=== PATIENT | male | born 1985 | race Hispanic/Latino ===

== ENCOUNTER 2022-06-14 13:31 | Inpatient (IN) | payer SELFPAY ==
[~2022-06-14] VITALS: Ht 172.7 cm; Wt 99.2 kg
[2022-06-14 14:47] LABS: HEMATOCRIT 39.8 % (42.0-52.0); HEMOGLOBIN 13.1 g/dl (13.5-17.5); MEAN CORPUSCULAR HGB CONC 32.9 g/dl (32.0-36.5); PLATELET COUNT, AUTOMATED 309 10^3/uL (150-450); RED BLOOD COUNT 4.68 10^6/uL (4.30-6.10); WHITE BLOOD COUNT 7.9 10^3/uL (4.0-10.0)
[2022-06-14 15:18] LABS: ETHYL ALCOHOL (ETHANOL) < 0.003 % (0.000-0.010)
[2022-06-14 15:19] LABS: ACETAMINOPHEN LEVEL < 2.0 UG/ML (10.0-20.0); SALICYLATE LEVEL < 3.0 MG/DL (<30)
[2022-06-14 15:29] LABS: AMPHETAMINES LEVEL URINE NEGATIVE (NEGATIVE); BARBITURATES URINE NEGATIVE (NEGATIVE); BENZODIAZEPINES URINE NEGATIVE (NEGATIVE); CANNABINOIDS URINE NEGATIVE (NEGATIVE); COCAINE METABOLITE URINE NEGATIVE (NEGATIVE); METHADONE URINE NEGATIVE (NEGATIVE); OPIATES URINE NEGATIVE (NEGATIVE); PHENCYCLIDINE URINE NEGATIVE (NEGATIVE)
[2022-06-14 16:30] LABS: ALBUMIN 3.8 G/DL (3.2-5.2); ALKALINE PHOSPHATASE 75 U/L (46-116); ALT/SGPT < 9 U/L (7.0-40); AST/SGOT 14 U/L (<34); BILIRUBIN,DIRECT 0.1 MG/DL (<0.4); BILIRUBIN,TOTAL 0.5 MG/DL (0.3-1.2); BLOOD UREA NITROGEN 13 MG/DL (9-23); CALCIUM LEVEL 9.4 MG/DL (8.5-10.1); CARBON DIOXIDE LEVEL 26 MMOL/L (20-31); CHLORIDE LEVEL 104 MMOL/L (98-107); CREATININE FOR GFR 0.84 MG/DL (0.70-1.30); GLOMERULAR FILTRATION RATE > 60.0 (>60); GLUCOSE, FASTING 100 MG/DL (60-100); POTASSIUM SERUM 3.9 MMOL/L (3.5-5.1); SODIUM LEVEL 139 MMOL/L (136-145); THYROID STIMULATING HORMONE 0.917 uIU/ML (0.55-4.78)
[2022-06-14] MEDS ORDERED: HOME MED LIST COMPLETE! XX SCH (23:30)
[2022-06-15] MEDS ORDERED: MAALOX 30 ML SUSP *UDC PO PRN (12:15)
[2022-06-15] MEDS ORDERED: traZODone 50 MG TAB PO PRN (12:15)
[2022-06-15] MEDS ORDERED: IBUPROFEN 400MG TAB PO PRN (12:15)
[2022-06-15] MEDS ORDERED: MOM 30ML SUSPENSION UDC PO PRN (12:15)
[2022-06-15] MEDS ORDERED: LORazepam 1 MG TAB PO PRN (12:15)
[2022-06-15 15:27] VITALS: BP 134/98
[2022-06-16 06:31] VITALS: BP 127/71
[2022-06-16] MEDS ORDERED: INFLUENZA QUADRIVALENT PF VACCINE 0.5ML SYRINGE IM.IMMUN ONE (09:00)
[2022-06-16] MEDS ORDERED: risperiDONE 0.5 MG TAB PO ONE (11:00)
[2022-06-16] MEDS: FLUoxetine 20MG CAP PO SCH (11:42)
[2022-06-16 16:40] VITALS: BP 110/64
[2022-06-16] MEDS: risperiDONE 0.5 MG TAB PO SCH (20:11)
[2022-06-17 06:09] VITALS: BP 114/58
[2022-06-17] MEDS: FLUoxetine 20MG CAP PO SCH (07:57)
[2022-06-17 08:12] LABS: HEMOGLOBIN A1c 5.4 % (4.0-6.0)
[2022-06-17 08:31] LABS: CHOLESTEROL RISK RATIO 3.41 (<5); HDL CHOLESTEROL 39.5 MG/DL (>40); LDL CHOLESTEROL 75.9 MG/DL (<100)
[2022-06-17 16:12] VITALS: BP 127/72
[2022-06-17] MEDS: risperiDONE 0.5 MG TAB PO SCH (20:07)
[2022-06-18 06:37] VITALS: BP 98/55
[2022-06-18] MEDS: FLUoxetine 20MG CAP PO SCH (09:58)
[2022-06-18 17:24] VITALS: BP 130/87
[2022-06-18] MEDS: risperiDONE 0.5 MG TAB PO SCH (20:04)
[2022-06-19 06:17] VITALS: BP 113/58
[2022-06-19] MEDS: FLUoxetine 20MG CAP PO SCH (08:34)
[2022-06-19] MEDS ORDERED: RISP-7 PO (11:10)
[2022-06-19] MEDS ORDERED: FLUO20CA22 PO (11:10)
== END 2022-06-19 14:05 | disposition home or self-care (01) | DRG 751 ==
LOC: M ED 13:31 → M ED INP 06-15 12:15 → EDBD 06-15 12:15 → M PSY 06-15 15:15
PROVIDERS: ADMIT Psychiatry & Neurology Psychiatry; ATTEND Student in an Organized Health Care Education/Training Program
DX: F33.3 Major depressive disorder, recurrent, severe with psychotic symptoms (principal); G47.00 Insomnia, unspecified

== ENCOUNTER 2022-06-24 10:31 | Inpatient (IN) | payer SELFPAY ==
[~2022-06-24] VITALS: Ht 172.7 cm; Wt 97.2 kg
[~2022-06-24 10:31] MED LIST: FLUO20CA22 PO; RISP-7 PO
[2022-06-24 11:44] LABS: HEMATOCRIT 39.5 % (42.0-52.0); HEMOGLOBIN 13.3 g/dl (13.5-17.5); MEAN CORPUSCULAR HEMOGLOBIN 29.4 pg (27.0-33.0); MEAN CORPUSCULAR HGB CONC 33.7 g/dl (32.0-36.5); MEAN CORPUSCULAR VOLUME 87.2 fl (80.0-96.0); PLATELET COUNT, AUTOMATED 307 10^3/uL (150-450); RED BLOOD COUNT 4.53 10^6/uL (4.30-6.10); WHITE BLOOD COUNT 7.4 10^3/uL (4.0-10.0)
[2022-06-24 12:01] LABS: AMPHETAMINES LEVEL URINE NEGATIVE (NEGATIVE); BARBITURATES URINE NEGATIVE (NEGATIVE); BENZODIAZEPINES URINE NEGATIVE (NEGATIVE); CANNABINOIDS URINE NEGATIVE (NEGATIVE); COCAINE METABOLITE URINE NEGATIVE (NEGATIVE); METHADONE URINE NEGATIVE (NEGATIVE); OPIATES URINE NEGATIVE (NEGATIVE); PHENCYCLIDINE URINE NEGATIVE (NEGATIVE)
[2022-06-24 12:03] LABS: ETHYL ALCOHOL (ETHANOL) 0.004 % (0.000-0.010)
[2022-06-24 12:05] LABS: ACETAMINOPHEN LEVEL < 2.0 UG/ML (10.0-20.0); ALBUMIN 3.8 G/DL (3.2-5.2); ALKALINE PHOSPHATASE 69 U/L (46-116); ALT/SGPT 10 U/L (7.0-40); AST/SGOT 14 U/L (<34); BILIRUBIN,DIRECT 0.2 MG/DL (<0.4); BILIRUBIN,TOTAL 0.5 MG/DL (0.3-1.2); BLOOD UREA NITROGEN 13 MG/DL (9-23); CARBON DIOXIDE LEVEL 26 MMOL/L (20-31); CHLORIDE LEVEL 104 MMOL/L (98-107); CREATININE FOR GFR 0.81 MG/DL (0.70-1.30); GLOMERULAR FILTRATION RATE > 60.0 (>60); GLUCOSE, FASTING 100 MG/DL (60-100); POTASSIUM SERUM 3.8 MMOL/L (3.5-5.1); SALICYLATE LEVEL < 3.0 MG/DL (<30); SODIUM LEVEL 137 MMOL/L (136-145); TOTAL PROTEIN 7.8 G/DL (5.7-8.2)
[2022-06-24 12:07] LABS: THYROID STIMULATING HORMONE 0.869 uIU/ML (0.55-4.78)
[2022-06-24] MEDS ORDERED: HOME MED LIST COMPLETE! XX SCH (13:45)
[2022-06-24] MEDS ORDERED: OLANZapine ORAL DISINTEGRATING TAB 5MG PO PRN (16:05)
[2022-06-24] MEDS ORDERED: MAALOX 30 ML SUSP *UDC PO PRN (16:05)
[2022-06-24] MEDS ORDERED: ACETAMINOPHEN TAB 650MG DOSE (2X325MG) PO PRN (16:05)
[2022-06-24] MEDS ORDERED: MOM 30ML SUSPENSION UDC PO PRN (16:05)
[2022-06-24 17:18] VITALS: BP 126/93
[2022-06-24] MEDS ORDERED: risperiDONE 0.5 MG TAB PO SCH ×2 (21:00)
[2022-06-25 06:29] VITALS: BP 118/68
[2022-06-25] MEDS ORDERED: FLUoxetine 20MG CAP PO SCH ×2 (09:00)
[2022-06-25 16:43] VITALS: BP 136/66
[2022-06-25] MEDS ORDERED: risperiDONE 1 MG TAB PO SCH (21:00)
[2022-06-26 06:55] VITALS: BP 113/69
[2022-06-26] MEDS: FLUoxetine 20MG CAP PO SCH (08:12)
[2022-06-26] MEDS: risperiDONE 1 MG TAB PO SCH ×2 (12:58→19:55)
[2022-06-26] MEDS: BENZTROPINE 1 MG TAB PO SCH ×2 (12:58→19:55)
[2022-06-26 16:32] VITALS: BP 137/79
[2022-06-27 06:36] VITALS: BP 114/61
[2022-06-27] MEDS: risperiDONE 1 MG TAB PO SCH ×2 (08:27→20:01)
[2022-06-27] MEDS: BENZTROPINE 1 MG TAB PO SCH ×2 (08:27→20:01)
[2022-06-27] MEDS: FLUoxetine 20MG CAP PO SCH (08:28)
[2022-06-27 16:30] VITALS: BP 106/61
[2022-06-28 06:34] VITALS: BP 129/63
[2022-06-28] MEDS: BENZTROPINE 1 MG TAB PO SCH ×2 (08:15→20:13)
[2022-06-28] MEDS: risperiDONE 1 MG TAB PO SCH ×2 (08:15→20:13)
[2022-06-28] MEDS: FLUoxetine 20MG CAP PO SCH (08:15)
[2022-06-28 18:50] VITALS: BP 139/84
[2022-06-28] MEDS: traZODone 50 MG TAB PO PRN (23:29)
[2022-06-29 06:38] VITALS: BP 131/70
[2022-06-29] MEDS: risperiDONE 1 MG TAB PO SCH (08:25)
[2022-06-29] MEDS: FLUoxetine 20MG CAP PO SCH (08:25)
[2022-06-29] MEDS: BENZTROPINE 1 MG TAB PO SCH ×2 (08:25→20:02)
[2022-06-29 16:20] VITALS: BP 136/81
[2022-06-29] MEDS: risperiDONE 2 MG TAB PO SCH (20:02)
[2022-06-30 06:39] VITALS: BP 109/77
[2022-06-30] MEDS: BENZTROPINE 1 MG TAB PO SCH ×2 (07:41→19:52)
[2022-06-30] MEDS: risperiDONE 2 MG TAB PO SCH ×2 (07:41→19:53)
[2022-06-30] MEDS: FLUoxetine 20MG CAP PO SCH (07:41)
[2022-06-30 16:19] VITALS: BP 130/69
[2022-07-01 06:36] VITALS: BP 118/69
[2022-07-01] MEDS: BENZTROPINE 1 MG TAB PO SCH ×2 (08:50→19:57)
[2022-07-01] MEDS: risperiDONE 2 MG TAB PO SCH ×2 (08:50→19:57)
[2022-07-01] MEDS: FLUoxetine 20MG CAP PO SCH (08:50)
[2022-07-01 16:03] VITALS: BP 126/70
[2022-07-01] MEDS: traZODone 50 MG TAB PO PRN (21:25)
[2022-07-02 07:00] VITALS: BP 118/65
[2022-07-02] MEDS: FLUoxetine 20MG CAP PO SCH (08:00)
[2022-07-02] MEDS: BENZTROPINE 1 MG TAB PO SCH ×2 (08:01→20:09)
[2022-07-02] MEDS: risperiDONE 2 MG TAB PO SCH (08:01)
[2022-07-02 17:36] VITALS: BP 150/91
[2022-07-02] MEDS: risperiDONE 3 MG TAB PO SCH (20:09)
[2022-07-03 06:14] VITALS: BP 111/73
[2022-07-03] MEDS: BENZTROPINE 1 MG TAB PO SCH ×2 (08:15→19:59)
[2022-07-03] MEDS: risperiDONE 3 MG TAB PO SCH ×2 (08:15→19:59)
[2022-07-03] MEDS: FLUoxetine 20MG CAP PO SCH (08:15)
[2022-07-03 18:25] VITALS: BP 132/72
[2022-07-04 06:21] VITALS: BP 127/75
[2022-07-04] MEDS: BENZTROPINE 1 MG TAB PO SCH (08:01)
[2022-07-04] MEDS: FLUoxetine 20MG CAP PO SCH (08:01)
[2022-07-04] MEDS: risperiDONE 3 MG TAB PO SCH (08:01)
[2022-07-04] MEDS ORDERED: FLUO-96 PO (09:41)
[2022-07-04] MEDS ORDERED: RISP-10 PO (09:41)
[2022-07-04] MEDS ORDERED: BENZ1TAB5 PO (09:41)
[2022-07-04] MEDS ORDERED: FLUO40CA PO (09:41)
== END 2022-07-04 14:13 | disposition home or self-care (01) | DRG 750 ==
LOC: M ED 10:31 → M ED INP 16:03 → M PSY 17:01
PROVIDERS: ADMIT Student in an Organized Health Care Education/Training Program; ATTEND Student in an Organized Health Care Education/Training Program
DX: F25.1 Schizoaffective disorder, depressive type (principal); F43.10 Post-traumatic stress disorder, unspecified; Z79.899 Other long term (current) drug therapy

== ENCOUNTER 2023-05-26 00:19 | Emergency (ER) | payer BC, MEDICAID ==
[~2023-05-26 00:19] MED LIST changes: +BENZ1TAB5 PO; +FLUO-96 PO; +FLUO40CA PO; +RISP-10 PO
[2023-05-26 01:17] LABS: HEMATOCRIT 39.1 % (42.0-52.0); MEAN CORPUSCULAR HEMOGLOBIN 30.8 pg (27.0-33.0); MEAN CORPUSCULAR HGB CONC 35.8 g/dl (32.0-36.5); MEAN CORPUSCULAR VOLUME 86.1 fl (80.0-96.0); PLATELET COUNT, AUTOMATED 400 10^3/uL (150-450); RED BLOOD COUNT 4.54 10^6/uL (4.30-6.10); WHITE BLOOD COUNT 10.3 10^3/uL (4.0-10.0)
[2023-05-26 01:40] LABS: AMPHETAMINES LEVEL URINE NEGATIVE (NEGATIVE); BARBITURATES URINE NEGATIVE (NEGATIVE); BENZODIAZEPINES URINE NEGATIVE (NEGATIVE); CANNABINOIDS URINE NEGATIVE (NEGATIVE); COCAINE METABOLITE URINE NEGATIVE (NEGATIVE); METHADONE URINE NEGATIVE (NEGATIVE); OPIATES URINE NEGATIVE (NEGATIVE); PHENCYCLIDINE URINE NEGATIVE (NEGATIVE)
[2023-05-26 01:42] LABS: ETHYL ALCOHOL (ETHANOL) 0.003 % (0.000-0.010)
[2023-05-26 01:44] LABS: ALKALINE PHOSPHATASE 87 U/L (46-116); ALT/SGPT 12 U/L (7.0-40); AST/SGOT 11 U/L (<34); BILIRUBIN,DIRECT 0.2 MG/DL (<0.4); BILIRUBIN,TOTAL 0.5 MG/DL (0.3-1.2); BLOOD UREA NITROGEN 11 MG/DL (9-23); CALCIUM LEVEL 9.4 MG/DL (8.5-10.1); CARBON DIOXIDE LEVEL 21 MMOL/L (20-31); CHLORIDE LEVEL 108 MMOL/L (98-107); CREATININE FOR GFR 0.89 MG/DL (0.70-1.30); GLOMERULAR FILTRATION RATE > 60.0 (>60); GLUCOSE, FASTING 110 MG/DL (60-100); POTASSIUM SERUM 3.2 MMOL/L (3.5-5.1); SALICYLATE LEVEL < 3.0 MG/DL (<30); SODIUM LEVEL 139 MMOL/L (136-145)
[2023-05-26 01:46] LABS: THYROID STIMULATING HORMONE 2.061 uIU/ML (0.55-4.78)
[2023-05-26] MEDS ORDERED: POTASSIUM CHLORIDE 10MEQ SR TABLET PO ONE (08:10)
[2023-05-26] MEDS ORDERED: MED REC IN PROGRESS XX SCH (08:15)
[2023-05-26] MEDS: FLUoxetine 20MG CAP PO SCH (09:43)
[2023-05-26] MEDS: BENZTROPINE 1 MG TAB PO SCH ×2 (09:43→20:40)
[2023-05-26] MEDS ORDERED: MED REC CURRENTLY UNOBTAINABLE XX SCH (10:15)
[2023-05-26] MEDS ORDERED: RISP-10 PO (10:55)
[2023-05-26] MEDS ORDERED: BENZ1TAB5 PO (10:55)
[2023-05-26] MEDS ORDERED: FLUO40CA PO (10:55)
[2023-05-26] MEDS ORDERED: FLUO-96 PO (10:55)
[2023-05-26] MEDS ORDERED: HOME MED LIST COMPLETE! XX SCH (11:05)
[2023-05-27] MEDS: BENZTROPINE 1 MG TAB PO SCH (09:31)
[2023-05-27] MEDS: FLUoxetine 20MG CAP PO SCH (09:31)
[2023-05-27] MEDS ORDERED: POTASSIUM CHLORIDE 10MEQ SR TABLET PO ONE (12:00)
[2023-05-27 16:25] VITALS: BP 136/70; TEMP 98.2; O2SAT 99
== END 2023-05-27 16:31 ==
LOC: M ED 00:19
DX: F20.9 Schizophrenia, unspecified (principal); E87.6 Hypokalemia; Z91.148 Patient's other noncompliance with medication regimen for other reason; Z79.899 Other long term (current) drug therapy; Z79.811 Long term (current) use of aromatase inhibitors

== ENCOUNTER 2025-01-25 16:18 | Inpatient (IN) | payer MEDICAID, OTHER ==
[~2025-01-25] VITALS: Ht 172.7 cm; Wt 119.0 kg
[~2025-01-25 16:18] MED LIST changes: +FLUO-365 PO; -FLUO20CA22 PO; -RISP-10 PO; -RISP-7 PO; +RISP0.5T82 PO; +RISP3TAB77 PO
[2025-01-25 17:29] LABS: PLATELET COUNT, AUTOMATED 276 10^3/uL (150-450)
[2025-01-25 17:48] LABS: AMPHETAMINES LEVEL URINE NEGATIVE (NEGATIVE); BARBITURATES URINE NEGATIVE (NEGATIVE); COCAINE METABOLITE URINE NEGATIVE (NEGATIVE); METHADONE URINE NEGATIVE (NEGATIVE); OPIATES URINE NEGATIVE (NEGATIVE)
[2025-01-25 17:49] LABS: BENZODIAZEPINES URINE NEGATIVE (NEGATIVE); CANNABINOIDS URINE NEGATIVE (NEGATIVE); PHENCYCLIDINE URINE NEGATIVE (NEGATIVE)
[2025-01-25 17:52] LABS: ETHYL ALCOHOL (ETHANOL) 0.003 % (0.000-0.010); SALICYLATE LEVEL < 3.0 MG/DL (<30)
[2025-01-25 17:53] LABS: ALT/SGPT 12 U/L (7.0-40); AST/SGOT 13 U/L (<34); CALCIUM LEVEL 9.0 MG/DL (8.5-10.1); CARBON DIOXIDE LEVEL 24 MMOL/L (20-31); CHLORIDE LEVEL 104 MMOL/L (98-107); CREATININE FOR GFR 0.92 MG/DL (0.70-1.30); GLOMERULAR FILTRATION RATE > 90.0 (>60); POTASSIUM SERUM 3.3 MMOL/L (3.5-5.1); SODIUM LEVEL 138 MMOL/L (136-145)
[2025-01-25] MEDS ORDERED: ACETAMINOPHEN 325 MG TAB PO PRN (18:40)
[2025-01-25] MEDS ORDERED: IBUPROFEN 400 MG TAB PO PRN (18:40)
[2025-01-25] MEDS ORDERED: MAALOX 30 ML SUSP *UDC PO PRN (18:40)
[2025-01-25] MEDS ORDERED: MOM 30 ML SUSPENSION UDC PO PRN (18:40)
[2025-01-25] MEDS ORDERED: traZODone 50 MG TAB PO PRN (18:40)
[2025-01-25] MEDS ORDERED: AMOX875T2 PO (19:13)
[2025-01-25] MEDS ORDERED: ONDA-282 SL (19:13)
[2025-01-25] MEDS ORDERED: TRAZ300T2 PO (19:29)
[2025-01-25] MEDS ORDERED: LORA1TAB23 PO (19:29)
[2025-01-25] MEDS ORDERED: LAMO-18 PO (19:29)
[2025-01-25] MEDS ORDERED: AUST9TAB PO (19:29)
[2025-01-25] MEDS ORDERED: RISP4TAB95 PO (19:29)
[2025-01-25] MEDS ORDERED: HYDR50TA70 PO (19:29)
[2025-01-25] MEDS ORDERED: HOME MED LIST COMPLETE! XX SCH (19:30)
[2025-01-25] MEDS ORDERED: ONDANSETRON 4MG ORAL DISINTEGRATING TAB SL PRN (20:10)
[2025-01-25] MEDS: traZODone 50 MG TAB PO SCH (20:36)
[2025-01-25] MEDS: traZODone 100 MG TAB PO SCH (20:36)
[2025-01-25] MEDS: LORazepam 1 MG TAB PO SCH (20:37)
[2025-01-25] MEDS: lamoTRIgine 25 MG TAB PO SCH (20:37)
[2025-01-25] MEDS: UNRESOLVED PATIENT OWN MED ORDER XX SCH (21:00)
[2025-01-25 21:50] VITALS: BP 140/98; TEMP 98.2; O2SAT 97
[2025-01-26 06:32] VITALS: BP 152/85; TEMP 97.5; O2SAT 95
[2025-01-26] MEDS: POTASSIUM CHLORIDE 10MEQ SR TABLET PO ONE (12:56)
[2025-01-26 13:50] LABS: BASO # 0.0 10^3/uL (0.0-0.2); BASO % 0.4 % (0.0-1.0); EOS # 0.0 10^3/uL (0.0-0.5); EOS % 0.3 % (0.0-3.0); LYMPH # 1.5 10^3/uL (1.5-5.0); LYMPH % 18.7 % (24.0-44.0); MONO # 0.4 10^3/uL (0.0-0.8); MONO % 4.5 % (2.0-8.0); NEUTROPHILS # 5.9 10^3/uL (1.5-8.5); NEUTROPHILS % 75.6 % (36.0-66.0); PLATELET COUNT, AUTOMATED 261 10^3/uL (150-450)
[2025-01-26 14:54] VITALS: BP 133/84; TEMP 97.3; O2SAT 98
[2025-01-26] MEDS: PROPRANOLOL 10 MG TAB PO SCH (15:15)
[2025-01-26] MEDS: DEUTETRABENAZINE 9 MG PO SCH (17:22)
[2025-01-27] MEDS: LORazepam 0.5 MG TAB PO PRN (02:19)
[2025-01-27 06:28] VITALS: BP 132/62; TEMP 97.8; O2SAT 98
[2025-01-27 08:26] VITALS: BP 120/83
[2025-01-27 14:52] VITALS: BP 105/57; TEMP 97.8; O2SAT 98
[2025-01-27] MEDS: traZODone 100 MG TAB PO SCH (20:12)
[2025-01-28 06:27] VITALS: BP 150/82; TEMP 97.9; O2SAT 99
[2025-01-28] MEDS: VENLAFAXINE **XR** 37.5 MG CAPSULE PO SCH (10:28)
[2025-01-28 15:34] VITALS: BP 144/81; TEMP 97.9; O2SAT 100
[2025-01-28] MEDS: RISPERIDONE 1 MG TAB PO SCH (20:13)
[2025-01-29 15:28] VITALS: BP 146/90; TEMP 98; O2SAT 100
[2025-01-30 06:31] VITALS: BP 149/74; TEMP 97.6; O2SAT 98
[2025-01-30 09:02] VITALS: BP 132/63
[2025-01-30] MEDS: VENLAFAXINE **XR** 75MG CAPSULE PO SCH (09:04)
[2025-01-30 15:02] VITALS: BP 110/65; TEMP 97.6; O2SAT 99
[2025-01-31 06:53] VITALS: BP 113/61; TEMP 97.2; O2SAT 97
[2025-01-31 15:38] VITALS: BP 131/63; TEMP 97.9; O2SAT 97
[2025-01-31] MEDS: risperiDONE 0.5 MG TAB PO SCH (20:23)
[2025-02-01 06:33] VITALS: BP 124/62; TEMP 97.7; O2SAT 98
[2025-02-01 09:24] VITALS: BP 132/78
[2025-02-01 15:50] VITALS: BP 124/76; TEMP 96.6; O2SAT 99
[2025-02-02 06:41] VITALS: BP 111/57; TEMP 97.9; O2SAT 98
[2025-02-02 18:53] VITALS: BP 128/75; TEMP 97.8; O2SAT 97
[2025-02-03 06:35] VITALS: BP 141/80; TEMP 97.3; O2SAT 99
[2025-02-03 08:08] VITALS: BP 128/79
[2025-02-03 08:12] VITALS: BP 128/79
[2025-02-03] MEDS ORDERED: PROP10TA56 PO (08:51)
[2025-02-03] MEDS ORDERED: CLOZ25TA6 PO (08:51)
[2025-02-03] MEDS ORDERED: ATIV1TAB10 PO (08:51)
[2025-02-03] MEDS ORDERED: TRAZ-257 PO (08:51)
[2025-02-03] MEDS ORDERED: HYDR50TA70 PO (08:51)
[2025-02-03] MEDS ORDERED: VENL75CA47 PO (08:51)
== END 2025-02-03 16:38 | disposition home or self-care (01) | DRG 751 ==
LOC: M ED 16:18 → M ED INP 18:38 → M PSY 20:15
PROVIDERS: ADMIT Student in an Organized Health Care Education/Training Program; ATTEND Student in an Organized Health Care Education/Training Program
DX: F33.3 Major depressive disorder, recurrent, severe with psychotic symptoms (principal); F41.9 Anxiety disorder, unspecified; R45.851 Suicidal ideations; Z56.0 Unemployment, unspecified; E87.6 Hypokalemia; R73.9 Hyperglycemia, unspecified; R25.1 Tremor, unspecified; D64.9 Anemia, unspecified; Z79.2 Long term (current) use of antibiotics; Z79.899 Other long term (current) drug therapy